=== PATIENT | female | born 1995 | race Caucasian/White ===

== ENCOUNTER 2018-03-13 20:50 | Emergency (ER) | END 2018-03-14 01:40 | disposition home or self-care (01) ==

== ENCOUNTER 2018-03-14 09:59 | Emergency (ER) | END 2018-03-14 13:04 | disposition home or self-care (01) ==

== ENCOUNTER 2018-04-29 04:00 | Emergency (ER) | END 2018-04-29 06:54 | disposition home or self-care (01) ==

== ENCOUNTER 2018-12-28 19:04 | Emergency (ER) | payer MEDICAID ==
[~2018-12-28] VITALS: Wt 82.7 kg
[~2018-12-28 19:04] MED LIST: ACET500C5 PO; CEPH-443 PO; METO10TA92 PO; NITR-58 PO; ONDA4TAB14 PO; PREN1TAB62 PO
--- NOTE | 2018-12-28 22:07 | ERD ---
ER Documentation Chief Complaint Chief Complaint PELVIC PAIN, 7 WEEKS X'S 3 DAYS HPI 23-year-old female seventh week of presents with complaint of bleeding and pelvic cramping. States that she went through two pads today, one pad yesterday, 1 pad a day before and then just scanty bleeding before that. Last menstrual period was 11/06. states she has an [employer] [employer] but does not know the name or phone number. Last time she went to the exam was last Wednesday. History of . Denies medical history denies allergies. Denies medications. ROS All systems reviewed and are negative except as per history of present illness. Medications Home Meds Active Scripts Acetaminophen* (Tylophen*) 500 Mg Capsule, 1 CAP PO Q6H PRN for PAIN AND OR ELEVATED TEMP, #20 CAP Prov:ZEN LINDO 04/29/18 Nitrofurantoin Monohyd Macrocr* (Macrobid*) 100 Mg Capsr, 100 MG PO BID for 7 Days, CAP Prov:MARY KANG PA-C 04/11/18 Nitrofurantoin Monohyd Macrocr* (Macrobid*) 100 Mg Capsr, 100 MG PO HS for 7 Days, CAP Prov:MARY KANG PA-C 04/11/18 Metoclopramide* (Reglan*) 10 Mg Tablet, 10 MG PO Q6 PRN for NAUSEA AND/OR VOMITING, #10 TAB Prov:JOSE ESPOSITO PA-C 03/14/18 Acetaminophen* (Tylophen*) 500 Mg Capsule, 1 CAP PO Q6H PRN for PAIN AND OR ELEVATED TEMP, #20 CAP Prov:JOSE ESPOSITO PA-C 03/14/18 Cephalexin* (Keflex*) 500 Mg Capsule, 500 MG PO QID for 7 Days, CAP Prov:JOSE ESPOSITO PA-C 03/14/18 Ondansetron (Ondansetron Odt) 4 Mg Tab.rapdis, 4 MG PO Q6H PRN for NAUSEA AND/OR VOMITING, #10 TAB Prov:BRANDON LARKIN PA-C 03/14/18 Reported Medications Vit-Iron Fumarate-FA ( Vitamin Tablet) 1 Each Tablet, 1 TAB PO DAILY, TAB 06/24/16 Allergies Allergies: Coded Allergies: No Known Allergy (Unverified , 07/11/16) PMhx/Soc History of Surgery: Yes (C SECTION X'S 1) Anesthesia Reaction: No Hx Neurological Disorder: No Hx Respiratory Disorders: No Hx Cardiac Disorders: No Hx Psychiatric Problems: No Hx Miscellaneous Medical Probl: No Hx Alcohol Use: No Hx Substance Use: No Hx Tobacco Use: No Smoking Status: Never smoker FmHx Family History: No diabetes, No coronary disease, No other Physical Exam Vitals Vital Signs Date Temp Pulse Resp B/P (MAP) Pulse Ox O2 O2 Flow FiO2 Time Delivery Rate 12/28/18 97.9 89 18 147/62 100 19:41 (90) Physical Exam Const: No acute distress Head: Atraumatic Eyes: Normal Conjunctiva ENT: Normal External Ears, Nose and Mouth. Resp: Clear to auscultation bilaterally Cardio: Regular rate and rhythm, no murmurs Abd: Lower left quadrant tenderness. Otherwise soft, non tender, non distended. Normal bowel sounds Skin: No petechiae or rashes Back: No midline or flank tenderness Ext: No cyanosis, or edema Neur: Awake and alert Psych: Normal Mood and Affect Result Diagram: 12/28/182129 Results 24 hrs Laboratory Tests Test 12/28/18 21:30 White Blood Count 11.3 10^3/ul Red Blood Count 4.61 10^6/ul Hemoglobin 12.9 g/dl Hematocrit 39.0 % Mean Corpuscular Volume 84.6 fl Mean Corpuscular Hemoglobin 28.0 pg Mean Corpuscular Hemoglobin Concent 33.1 g/dl Red Cell Distribution Width 13.1 % Platelet Count 338 10^3/UL Mean Platelet Volume 9.6 fl Immature Granulocytes % 0.400 % Neutrophils % 66.3 % Lymphocytes % 24.7 % Monocytes % 6.0 % Eosinophils % 2.2 % Basophils % 0.4 % Nucleated Red Blood Cells % 0.0 /100WBC Immature Granulocytes # 0.050 10^3/ul Neutrophils # 7.5 10^3/ul Lymphocytes # 2.8 10^3/ul Monocytes # 0.7 10^3/ul Eosinophils # 0.3 10^3/ul Basophils # 0.0 10^3/ul Nucleated Red Blood Cells # 0.0 10^3/ul Urine Color YELLOW Urine Clarity CLEAR Urine pH 7.0 Urine Specific Witten 1.013 Urine Ketones NEGATIVE mg/dL Urine Nitrite NEGATIVE mg/dL Urine Bilirubin NEGATIVE mg/dL Urine Urobilinogen NEGATIVE mg/dL Urine Leukocyte Esterase TRACE Basil/ul Urine Microscopic RBC 3 /HPF Urine Microscopic WBC 3 /HPF Urine Squamous Epithelial Cells FEW /HPF Urine Bacteria FEW /HPF Urine Hemoglobin 3+ mg/dL Urine Glucose NEGATIVE mg/dL Urine Total Protein NEGATIVE mg/dl Beta HCG, Quantitative 1524.9 mIU/ml Procedures/MDM DIAGNOSTIC IMAGING REPORT Patient: DOMINIQUE KINNEY : 1995 Age: 23 Sex: F MR #: [id number] DOS: 12/28/18 2119 Ordering MD: MARY SUAZO Location: [facility] Room/Bed: PROCEDURE: US OB. CLINICAL INDICATION: First trimester hemorrhage. Threatened . TECHNIQUE: Transabdominal and transvaginal views of the pelvis are available for review. COMPARISON: No prior studies are available for comparison. FINDINGS: The uterus is anteverted. It measures 7.1 x 3.7 x 4.5 cm. Uterus is of normal contour and echogenicity. Noted is a single intrauterine gestation sac. Mean sac diameter measures 0.38 cm in diameter. This corresponds to a 3-phdj-9-day gestation by ultrasound criteria. There is a yolk sac. No pole or heartbeat is seen.. No subchorionic hemorrhage is seen. The right ovary measures 2.2 x 1.8 x 2.7 centimeter. The left ovary measures 2.2 x 1.7 x 2.1 centimeter. No adnexal masses seen. There is normal arterial flow to both ovaries on color-flow Doppler imaging. There is no free fluid in the pelvis. No solid pelvic mass is present. IMPRESSION: Very early intrauterine gestation sac with yolk sac. No pole or heartbeat seen. No subchorionic hemorrhage. Findings likely represent evidence of a viable very early intrauterine . Correlation with quantitative serial beta HCG levels is suggested. .Kalyan Stubbs MD, MD Date Time Electronically viewed and signed by .Kalyan Stubbs MD, on 12/28/2018 22:33 .A/ CC: MARY SUAZO [id number] ER Course: CBC, UA, beta quant HCG, type and RH, vaginal US/abdominal US ordered. All WNL. MDM:23-year-old female seventh week of presents with complaint of bleeding and pelvic cramping. States that she went through two pads today, one pad yesterday, 1 pad a day before and then just scanty bleeding before that. Last menstrual period was 11/06. states she has an [employer] but does not know the name or phone number. Last time she went to the exam was last Wednesday. History of . Ultrasound shows viable very early intrauterine with no sign of ectopic. Have low suspicion for ectopic based on results of US, hemodynamic stability, physical exam and patient history. I have low suspicion for septic , appendicitis, cholecystitis, bowel obstruction, ovarian torsion, symptomatic anema, PID, surgical abdomen, or other life threatening conditions based on patient history, physical exam, and lab/imaging results. Patient discharged with strict ER precautions. Patient advised to follow up with [employer] tomorrow. All questions answered at discharge. Departure Diagnosis: Primary Impression: Vaginal bleeding affecting early Additional Impression: Pelvic pain complicating Trimester: first trimester Qualified Codes: O26.891 - Other specified preg shelby related conditions, first trimester; R10.2 - Pelvic and perineal pain Condition: Stable LAKEISHAMARY Dec 28, 2018 22:07
[2018-12-28 23:04] VITALS: BP 129/68; PULSE 80; RESP 19
== END 2018-12-28 23:05 | disposition home or self-care (01) ==
LOC: FTE 19:04
DX: O26.891 Other specified pregnancy related conditions, first trimester (principal); R10.2 Pelvic and perineal pain; O20.9 Hemorrhage in early pregnancy, unspecified; Z3A.01 Less than 8 weeks gestation of pregnancy
CPT/HCPCS: 36415; 76801; 76817; 81001; 84702; 85025; 86900; 86901; Z7502